=== PATIENT | male | born 1985 | race Caucasian/White ===

== ENCOUNTER 2023-09-24 10:54 | Day surgery (SDC) | payer MEDICARE ==
[~2023-09-24] VITALS: Ht 180.3 cm; Wt 63.3 kg
[~2023-09-24 10:54] MED LIST: Lactated Ringer's 1,000 ML IV ONE; propofoL 50 ML IV ONE
[2023-09-24] MEDS ORDERED: PRED5 (11:29)
[2023-09-24] MEDS ORDERED: ATOR10 (11:30)
[2023-09-24] MEDS ORDERED: DOXY100 (11:30)
[2023-09-24] MEDS ORDERED: FLUDROCORTISON0.1 M1 (11:30)
[2023-09-24] MEDS ORDERED: ERGO50000 (11:30)
[2023-09-24] MEDS ORDERED: MIDO5 (11:31)
[2023-09-24] MEDS ORDERED: GABA300 (11:31)
[2023-09-24] MEDS ORDERED: MYCO250 (11:31)
[2023-09-24] MEDS ORDERED: TACR1 (11:31)
[2023-09-24] MEDS ORDERED: Lactated Ringer's 1,000 ML IV ONE (11:39)
== END 2023-09-24 13:29 | disposition home or self-care (01) ==
LOC: ORSCSDS 10:54
PROVIDERS: Internal Medicine Gastroenterology
PROC: 0DBE8ZX Excision of Large Intestine, Via Natural or Artificial Opening Endoscopic, Diagnostic (ICD-10-PCS; principal; 2023-09-24 12:15)
PROC: 0DB98ZX Excision of Duodenum, Via Natural or Artificial Opening Endoscopic, Diagnostic (ICD-10-PCS; principal; 2023-09-24 12:15)
DX: R11.0 Nausea (principal); R19.7 Diarrhea, unspecified; K63.89 Other specified diseases of intestine; Z79.899 Other long term (current) drug therapy
CPT/HCPCS: 82947; 88305; J2704; J7120